=== PATIENT | male | born 1955 | race Caucasian/White ===

== ENCOUNTER 2017-12-22 18:06 | Inpatient (IN) | payer BC, MEDICARE ==
[~2017-12-22] VITALS: Ht 185.4 cm; Wt 145.2 kg
[~2017-12-22 18:06] MED LIST: AMLO10TA2 PO; ATEN-60 PO; CLIN150C PO; CLIN1CAP4 PO; LORA1TAB12 PO; PANT40TA2 PO; TRAM-297 PO
[2017-12-22] MEDS: KETOROLAC TROMETH 30 MG/ML 1ML VIAL IV ONE ×2 (19:10→19:32)
[2017-12-22 19:36] LABS: Basophils # (auto) 0.1 uL; Basophils % (auto) 0.5 % (0.0-2.0); Eosinophils # (auto) 0.3 uL; Eosinophils % (auto) 2.5 % (0.0-7.0); Hematocrit 42.5 % (41.0-53.0); Hemoglobin 14.6 g/dL (13.5-17.5); Lymphocytes # (auto) 1.3 uL; Lymphocytes % (auto) 12.5 % (10.0-50.0); Mean Corpuscular Hemoglobin 32.5 pg (28.0-32.0); Mean Corpuscular Hgb Conc. 34.4 g/dL (32.0-36.0); Mean Corpuscular Volume 94.4 fL (80.0-100.0); Monocytes # (auto) 1.3 uL; Neutrophils # (auto) 7.8 uL; Neutrophils % (auto) 72.5 % (37.0-80.0); Platelet Count (auto) 297 10^3/uL (140-450); Red Cell Distribution Width 13.4 % (11.8-14.3); White Blood Cell 10.7 10^3/uL (4.4-10.8)
[2017-12-22 19:42] LABS: Albumin 2.7 g/dL (3.4-5.0); BUN/Creatinine Ratio 18.4; Calcium 9.1 mg/dL (8.5-10.1); Magnesium 2.8 mg/dL (1.6-2.6); Potassium 3.6 mmol/L (3.5-5.1); Uric Acid 8.2 mg/dL (3.5-7.2)
[2017-12-22] MEDS ORDERED: ONDANSETRON HCL 4 MG/2 ML VIAL IV PRN (23:30)
[2017-12-23] MEDS ORDERED: COLCHICINE 0.6 MG TAB PO ONE
[2017-12-23] MEDS ORDERED: predniSONE 20 MG TAB PO ONE
[2017-12-23 02:55] LABS: Urine Bacteria NONE SEEN /hpf (None Seen); Urine Blood Negative /uL (Negative); Urine Hyaline Cast FEW /lpf (0 - 2); Urine Mucus FEW (None Seen); Urine Specific Gravity 1.019 (1.001-1.035); Urine WBC 1 /hpf (0 - 3)
[2017-12-23 05:00] VITALS: BP 145/78
[2017-12-23 06:08] LABS: Basophils # (auto) 0 uL; Basophils % (auto) 0.3 % (0.0-2.0); Eosinophils # (auto) 0 uL; Eosinophils % (auto) 0.4 % (0.0-7.0); Hematocrit 42.8 % (41.0-53.0); Lymphocytes # (auto) 0.8 uL; Lymphocytes % (auto) 7.6 % (10.0-50.0); Mean Corpuscular Hemoglobin 32.9 pg (28.0-32.0); Mean Corpuscular Volume 94.1 fL (80.0-100.0); Monocytes # (auto) 0.5 uL; Monocytes % (auto) 5.1 % (0.0-12.0); Neutrophils # (auto) 8.9 uL; Neutrophils % (auto) 86.6 % (37.0-80.0); Nucleated Red Blood Cells % 0.1 %; Platelet Count (auto) 282 10^3/uL (140-450); Red Blood Cells 4.55 10^6/uL (4.5-5.90); Red Cell Distribution Width 13.2 % (11.8-14.3); White Blood Cell 10.3 10^3/uL (4.4-10.8)
[2017-12-23 06:18] LABS: Albumin 2.8 g/dL (3.4-5.0); BUN/Creatinine Ratio 21.2; Calcium 9.2 mg/dL (8.5-10.1); Potassium 3.9 mmol/L (3.5-5.1); Total Protein 8.2 g/dL (6.4-8.2)
[2017-12-23 09:00] VITALS: BP 140/77
[2017-12-23] MEDS ORDERED: ATENOLOL 50 MG TAB PO SCH (10:00)
[2017-12-23] MEDS: predniSONE 20 MG TAB PO SCH (10:28)
[2017-12-23] MEDS: PANTOPRAZOLE 40 MG TAB PO SCH (10:28)
[2017-12-23] MEDS: amLODIPine BESYLATE 5 MG TAB PO SCH (10:30)
[2017-12-23] MEDS: ENOXAPARIN SOD 40 MG/0.4 ML SYRINGE SC SCH (10:30)
[2017-12-23] MEDS ORDERED: METOPROLOL TARTRATE 1MG/1ML-5ML VIAL IV ONE (12:45)
[2017-12-23 13:00] VITALS: BP 109/75
[2017-12-23] MEDS ORDERED: SODIUM CHLORIDE 0.9% 1,000 ML IV ONE (13:45)
[2017-12-23] MEDS ORDERED: SODIUM CHLORIDE 0.9% 1,000 ML IV SCH (14:15)
[2017-12-23] MEDS ORDERED: DILTIAZEM HCL 25 MG/5 ML VIAL IV ONE (14:15)
[2017-12-23] MEDS ORDERED: ADENOSINE 6 MG/2 ML INJ IV ONE (14:30)
[2017-12-23] MEDS ORDERED: CLINDAMYCIN HCL 150 MG CAP PO SCH (14:59)
[2017-12-23 19:45] VITALS: BP 107/62
[2017-12-23] MEDS: METOPROLOL TARTRATE 25 MG TAB PO SCH (22:00)
[2017-12-23] MEDS: TEMAZEPAM 15 MG CAP PO PRN (22:29)
[2017-12-24] VITALS (7 sets, daily range): BP systolic 112–141; BP diastolic 63–79
[2017-12-24] MEDS: METOPROLOL TARTRATE 25 MG TAB PO SCH ×2 (09:11→21:57)
[2017-12-24] MEDS: amLODIPine BESYLATE 5 MG TAB PO SCH (09:12)
[2017-12-24] MEDS: ENOXAPARIN SOD 40 MG/0.4 ML SYRINGE SC SCH (09:25)
[2017-12-24] MEDS: predniSONE 20 MG TAB PO SCH (09:25)
[2017-12-24] MEDS: PANTOPRAZOLE 40 MG TAB PO SCH (09:25)
[2017-12-24 09:45] LABS: Basophils # (auto) 0.1 uL; Basophils % (auto) 0.6 % (0.0-2.0); Eosinophils # (auto) 0.1 uL; Eosinophils % (auto) 0.7 % (0.0-7.0); Hematocrit 42.5 % (41.0-53.0); Hemoglobin 14.2 g/dL (13.5-17.5); Lymphocytes # (auto) 1.8 uL; Lymphocytes % (auto) 15.1 % (10.0-50.0); Mean Corpuscular Hemoglobin 31.4 pg (28.0-32.0); Mean Corpuscular Hgb Conc. 33.4 g/dL (32.0-36.0); Monocytes % (auto) 8.4 % (0.0-12.0); Neutrophils # (auto) 9.1 uL; Neutrophils % (auto) 75.2 % (37.0-80.0); Platelet Count (auto) 344 10^3/uL (140-450); Red Blood Cells 4.53 10^6/uL (4.5-5.90); Red Cell Distribution Width 12.8 % (11.8-14.3); White Blood Cell 12.1 10^3/uL (4.4-10.8)
[2017-12-24 10:08] LABS: Potassium 3.8 mmol/L (3.5-5.1)
[2017-12-24] MEDS: CYCLOSPORINE EACHEYE SCH ×3 (14:04→22:24)
[2017-12-24] MEDS ORDERED: CYCLOSPORINE EACHEYE SCH (22:00)
[2017-12-24] MEDS: TEMAZEPAM 15 MG CAP PO PRN (22:24)
[2017-12-25 04:59] VITALS: BP 127/71
[2017-12-25 06:14] LABS: Basophils # (auto) 0 uL; Basophils % (auto) 0.4 % (0.0-2.0); Eosinophils # (auto) 0.1 uL; Eosinophils % (auto) 0.7 % (0.0-7.0); Hemoglobin 13.7 g/dL (13.5-17.5); Lymphocytes # (auto) 1.7 uL; Lymphocytes % (auto) 15.6 % (10.0-50.0); Mean Corpuscular Hemoglobin 31.9 pg (28.0-32.0); Mean Corpuscular Hgb Conc. 34.2 g/dL (32.0-36.0); Mean Corpuscular Volume 93.2 fL (80.0-100.0); Monocytes # (auto) 1.1 uL; Monocytes % (auto) 9.8 % (0.0-12.0); Neutrophils # (auto) 8.1 uL; Neutrophils % (auto) 73.5 % (37.0-80.0); Nucleated Red Blood Cells % 0.1 %; Platelet Count (auto) 294 10^3/uL (140-450); Red Blood Cells 4.29 10^6/uL (4.5-5.90); Red Cell Distribution Width 13.1 % (11.8-14.3)
[2017-12-25 06:31] LABS: Calcium 8.8 mg/dL (8.5-10.1); Potassium 3.8 mmol/L (3.5-5.1)
[2017-12-25 07:51] VITALS: BP 142/93
[2017-12-25] MEDS: predniSONE 20 MG TAB PO SCH (09:38)
[2017-12-25] MEDS: PANTOPRAZOLE 40 MG TAB PO SCH (09:38)
[2017-12-25] MEDS: METOPROLOL TARTRATE 25 MG TAB PO SCH ×2 (09:39→22:40)
[2017-12-25] MEDS: ENOXAPARIN SOD 40 MG/0.4 ML SYRINGE SC SCH (09:39)
[2017-12-25] MEDS: amLODIPine BESYLATE 5 MG TAB PO SCH (09:39)
[2017-12-25 12:37] VITALS: BP 143/63
[2017-12-25 17:27] VITALS: BP 150/86
[2017-12-25 20:00] VITALS: BP 130/77
[2017-12-25 21:30] VITALS: BP 130/77
[2017-12-25] MEDS: CYCLOSPORINE EACHEYE SCH (22:40)
[2017-12-25] MEDS: TEMAZEPAM 15 MG CAP PO PRN (22:41)
[2017-12-26 05:00] VITALS: BP 133/73
[2017-12-26 06:22] LABS: Hematocrit 42.4 % (41.0-53.0); Hemoglobin 14.4 g/dL (13.5-17.5); Mean Corpuscular Volume 94.2 fL (80.0-100.0); Platelet Count (auto) 295 10^3/uL (140-450); Red Blood Cells 4.51 10^6/uL (4.5-5.90); White Blood Cell 11.6 10^3/uL (4.4-10.8)
[2017-12-26 06:35] LABS: Band Neutrophils % (manual) 0; Basophils % (manual) 0 (0.0-2.0); Blast Cells 0; Eosinophils % (manual) 0 (0-7); Myelocytes % 0; Promyelocytes % 0; Reactive Lymphocytes 0
[2017-12-26] MEDS: PANTOPRAZOLE 40 MG TAB PO SCH (06:40)
[2017-12-26 06:45] LABS: Calcium 8.8 mg/dL (8.5-10.1); Potassium 3.7 mmol/L (3.5-5.1)
[2017-12-26 07:01] LABS: Lymphocytes % (manual) 21 (10.0-50.0); Metamyelocytes % 1; Monocytes % (manual) 6 (0-12)
[2017-12-26 08:09] VITALS: BP 154/74
[2017-12-26] MEDS: CYCLOSPORINE EACHEYE SCH ×2 (09:55→22:19)
[2017-12-26] MEDS: amLODIPine BESYLATE 5 MG TAB PO SCH (09:56)
[2017-12-26] MEDS: METOPROLOL TARTRATE 25 MG TAB PO SCH ×2 (09:56→22:20)
[2017-12-26] MEDS: ENOXAPARIN SOD 40 MG/0.4 ML SYRINGE SC SCH (10:00)
[2017-12-26 10:10] LABS: INR 1.09 (0.9-1.15); Prothrombin Time 11.6 sec (9.27-12.13)
[2017-12-26] MEDS: COLCHICINE 0.6 MG TAB PO SCH ×2 (10:45→22:19)
[2017-12-26 12:41] VITALS: BP 147/64
[2017-12-26 16:46] VITALS: BP 130/66
[2017-12-26] MEDS: DOXYCYCLINE 100MG/250ML 250 ML IV SCH (18:26)
[2017-12-26] MEDS: SODIUM CHLORIDE 0.9% 1,000 ML IV SCH (18:27)
[2017-12-26 19:00] LABS: Basophils # (auto) 0.1 uL; Basophils % (auto) 0.5 % (0.0-2.0); Eosinophils # (auto) 0.2 uL; Eosinophils % (auto) 1.7 % (0.0-7.0); Hematocrit 43.3 % (41.0-53.0); Hemoglobin 14.6 g/dL (13.5-17.5); Lymphocytes # (auto) 2.9 uL; Lymphocytes % (auto) 23.5 % (10.0-50.0); Mean Corpuscular Hemoglobin 31.9 pg (28.0-32.0); Mean Corpuscular Hgb Conc. 33.6 g/dL (32.0-36.0); Mean Corpuscular Volume 94.9 fL (80.0-100.0); Monocytes # (auto) 1.3 uL; Monocytes % (auto) 11.1 % (0.0-12.0); Neutrophils # (auto) 7.7 uL; Neutrophils % (auto) 63.2 % (37.0-80.0); Nucleated Red Blood Cells % 0.1 %; Platelet Count (auto) 308 10^3/uL (140-450); Red Blood Cells 4.56 10^6/uL (4.5-5.90); Red Cell Distribution Width 13.3 % (11.8-14.3); White Blood Cell 12.1 10^3/uL (4.4-10.8)
[2017-12-26 19:18] LABS: BUN/Creatinine Ratio 26.1; Calcium 8.9 mg/dL (8.5-10.1); Potassium 3.9 mmol/L (3.5-5.1)
[2017-12-26 21:55] VITALS: BP 108/57
[2017-12-26] MEDS: TEMAZEPAM 15 MG CAP PO PRN (23:29)
[2017-12-27 05:14] VITALS: BP 121/67
[2017-12-27 06:10] LABS: Hematocrit 40.8 % (41.0-53.0); Hemoglobin 14.1 g/dL (13.5-17.5); Mean Corpuscular Hemoglobin 32.5 pg (28.0-32.0); Mean Corpuscular Hgb Conc. 34.7 g/dL (32.0-36.0); Mean Corpuscular Volume 93.8 fL (80.0-100.0); Platelet Count (auto) 253 10^3/uL (140-450); Red Blood Cells 4.35 10^6/uL (4.5-5.90); Red Cell Distribution Width 13.1 % (11.8-14.3); White Blood Cell 10.9 10^3/uL (4.4-10.8)
[2017-12-27] MEDS: DOXYCYCLINE 100MG/250ML 250 ML IV SCH (06:23)
[2017-12-27] MEDS: PANTOPRAZOLE 40 MG TAB PO SCH (06:23)
[2017-12-27 06:29] LABS: Band Neutrophils % (manual) 0; Basophils % (manual) 0 (0.0-2.0); Blast Cells 0; Myelocytes % 0; Promyelocytes % 0; Reactive Lymphocytes 0
[2017-12-27 06:38] LABS: BUN/Creatinine Ratio 27.5; Calcium 8.7 mg/dL (8.5-10.1); Potassium 3.6 mmol/L (3.5-5.1)
[2017-12-27 06:46] LABS: Eosinophils % (manual) 2 (0-7); Lymphocytes % (manual) 22 (10.0-50.0); Metamyelocytes % 2; Monocytes % (manual) 5 (0-12)
[2017-12-27] MEDS: SODIUM CHLORIDE 0.9% 1,000 ML IV SCH ×2 (07:50→22:05)
[2017-12-27 09:00] VITALS: BP 119/72
[2017-12-27] MEDS: amLODIPine BESYLATE 5 MG TAB PO SCH (09:45)
[2017-12-27] MEDS: COLCHICINE 0.6 MG TAB PO SCH ×2 (09:45→22:04)
[2017-12-27] MEDS: METOPROLOL TARTRATE 25 MG TAB PO SCH ×2 (09:46→22:04)
[2017-12-27] MEDS: ENOXAPARIN SOD 40 MG/0.4 ML SYRINGE SC SCH (09:47)
[2017-12-27] MEDS: CYCLOSPORINE EACHEYE SCH ×2 (10:00→22:04)
[2017-12-27 13:00] VITALS: BP 116/64
[2017-12-27] MEDS ORDERED: LIDOCAINE 2% (LOCAL ANESTH.) PF 5ml SDV ONE (14:53)
[2017-12-27] MEDS ORDERED: MIDAZOLAM HCL 1MG/1ML-2 ML VIAL ONE (15:04)
[2017-12-27] MEDS ORDERED: fentaNYL CITRATE 100 MCG/2 ML VL ONE (15:04)
[2017-12-27] MEDS ORDERED: ceFAZolin 1GM/50ML 100 ML IV ONE (15:22)
[2017-12-27] MEDS ORDERED: DOXYCYCLINE 100 MG TAB/CAP PO ONE (16:00)
[2017-12-27] MEDS ORDERED: ASPirin 81 mg TAB ONE (17:26)
[2017-12-27 22:01] VITALS: BP 114/59
[2017-12-28] MEDS: traMADol HCL 50 MG TAB PO PRN ×3 (01:17→21:55)
[2017-12-28 05:21] VITALS: BP 138/79
[2017-12-28] MEDS: ACETAMINOPHEN 325 MG TAB PO PRN (06:15)
[2017-12-28] MEDS: PANTOPRAZOLE 40 MG TAB PO SCH (06:46)
[2017-12-28 07:03] LABS: Hematocrit 42.5 % (41.0-53.0); Hemoglobin 14.4 g/dL (13.5-17.5); Mean Corpuscular Hemoglobin 31.5 pg (28.0-32.0); Mean Corpuscular Hgb Conc. 33.8 g/dL (32.0-36.0); Mean Corpuscular Volume 93.3 fL (80.0-100.0); Platelet Count (auto) 236 10^3/uL (140-450); Red Blood Cells 4.56 10^6/uL (4.5-5.90); Red Cell Distribution Width 13.1 % (11.8-14.3); White Blood Cell 13.1 10^3/uL (4.4-10.8)
[2017-12-28 07:08] LABS: Band Neutrophils % (manual) 0; Basophils % (manual) 0 (0.0-2.0); Blast Cells 0; Metamyelocytes % 0; Promyelocytes % 0; Reactive Lymphocytes 0
[2017-12-28 07:21] LABS: BUN/Creatinine Ratio 22.5; Calcium 8.5 mg/dL (8.5-10.1)
[2017-12-28 09:00] VITALS: BP 127/73
[2017-12-28] MEDS: METOPROLOL TARTRATE 25 MG TAB PO SCH ×2 (10:00→21:56)
[2017-12-28] MEDS: COLCHICINE 0.6 MG TAB PO SCH ×2 (10:18→21:55)
[2017-12-28] MEDS: ENOXAPARIN SOD 40 MG/0.4 ML SYRINGE SC SCH (10:18)
[2017-12-28] MEDS: ASPirin 81 mg TAB PO SCH (10:18)
[2017-12-28] MEDS: amLODIPine BESYLATE 5 MG TAB PO SCH (10:18)
[2017-12-28] MEDS: SODIUM CHLORIDE 0.9% 1,000 ML IV SCH ×2 (10:19→23:50)
[2017-12-28] MEDS: CYCLOSPORINE EACHEYE SCH ×2 (10:19→21:57)
[2017-12-28 11:26] LABS: Eosinophils % (manual) 3 (0-7); Lymphocytes % (manual) 19 (10.0-50.0); Monocytes % (manual) 4 (0-12); Myelocytes % 1
[2017-12-28 13:00] VITALS: BP 123/59
[2017-12-28 17:00] VITALS: BP 120/72
[2017-12-28 20:00] VITALS: BP 128/66
[2017-12-28] MEDS: TEMAZEPAM 15 MG CAP PO PRN (21:56)
[2017-12-28 22:00] VITALS: BP 128/66
[2017-12-29] MEDS: MORPHINE SULFATE 4 MG/ML SYR/VIAL IV PRN (03:01)
[2017-12-29] MEDS ORDERED: ASPI325T4 PO (04:07)
[2017-12-29 05:00] VITALS: BP 138/69
[2017-12-29] MEDS: PANTOPRAZOLE 40 MG TAB PO SCH (06:50)
[2017-12-29 09:00] VITALS: BP 107/68
[2017-12-29] MEDS: METOPROLOL TARTRATE 25 MG TAB PO SCH ×2 (10:00→22:11)
[2017-12-29] MEDS: amLODIPine BESYLATE 5 MG TAB PO SCH (10:00)
[2017-12-29] MEDS: COLCHICINE 0.6 MG TAB PO SCH ×2 (10:16→22:11)
[2017-12-29] MEDS: ENOXAPARIN SOD 40 MG/0.4 ML SYRINGE SC SCH (10:16)
[2017-12-29] MEDS: CYCLOSPORINE EACHEYE SCH ×2 (10:16→22:13)
[2017-12-29] MEDS: ASPirin 81 mg TAB PO SCH (10:16)
[2017-12-29] MEDS: SODIUM CHLORIDE 0.9% 1,000 ML IV SCH (11:30)
[2017-12-29 13:00] VITALS: BP 124/78
[2017-12-29 17:00] VITALS: BP 141/69
[2017-12-29 22:00] VITALS: BP 121/74
[2017-12-29] MEDS: TEMAZEPAM 15 MG CAP PO PRN (22:12)
[2017-12-29] MEDS: traMADol HCL 50 MG TAB PO PRN (22:12)
[2017-12-29] MEDS: ACETAMINOPHEN 325 MG TAB PO PRN (22:12)
[2017-12-30] MEDS: MORPHINE SULFATE 4 MG/ML SYR/VIAL IV PRN (00:45)
[2017-12-30] MEDS: SODIUM CHLORIDE 0.9% 1,000 ML IV SCH (02:30)
[2017-12-30 05:37] VITALS: BP 124/76
[2017-12-30] MEDS: PANTOPRAZOLE 40 MG TAB PO SCH (07:11)
[2017-12-30 08:02] LABS: Hematocrit 40.1 % (41.0-53.0); Hemoglobin 13.5 g/dL (13.5-17.5); Mean Corpuscular Hemoglobin 31.5 pg (28.0-32.0); Mean Corpuscular Hgb Conc. 33.8 g/dL (32.0-36.0); Mean Corpuscular Volume 93.1 fL (80.0-100.0); Platelet Count (auto) 204 10^3/uL (140-450); Red Cell Distribution Width 13.6 % (11.8-14.3); White Blood Cell 13.1 10^3/uL (4.4-10.8)
[2017-12-30 08:14] LABS: Basophils % (manual) 0 (0.0-2.0); Blast Cells 0; Metamyelocytes % 0; Myelocytes % 0; Promyelocytes % 0; Reactive Lymphocytes 0
[2017-12-30 08:16] VITALS: BP 137/76
[2017-12-30] MEDS: METOPROLOL TARTRATE 25 MG TAB PO SCH (10:00)
[2017-12-30 10:19] LABS: Band Neutrophils % (manual) 1; Eosinophils % (manual) 1 (0-7); Lymphocytes % (manual) 15 (10.0-50.0); Monocytes % (manual) 9 (0-12)
[2017-12-30] MEDS: COLCHICINE 0.6 MG TAB PO SCH (10:35)
[2017-12-30] MEDS: ASPirin 81 mg TAB PO SCH (10:36)
[2017-12-30] MEDS: amLODIPine BESYLATE 5 MG TAB PO SCH (10:36)
[2017-12-30] MEDS: CYCLOSPORINE EACHEYE SCH (10:36)
[2017-12-30] MEDS: ENOXAPARIN SOD 40 MG/0.4 ML SYRINGE SC SCH (10:36)
[2017-12-30 13:00] VITALS: BP 130/76
[2017-12-30 13:21] VITALS: BP 137/76
== END 2017-12-30 15:00 | DRG 273 ==
LOC: ER 18:06 → EDUNIT# 18:06 → WEST WING 18:07 → DOU IN ICU 12-23 16:55 → TELE-CENTR 12-24 14:14
PROVIDERS: ADMIT Nurse Practitioner; ATTEND Internal Medicine
PROC: 4A0234Z Measurement of Cardiac Electrical Activity, Percutaneous Approach (ICD-10-PCS; principal; 2017-12-27)
PROC: 02583ZZ Destruction of Conduction Mechanism, Percutaneous Approach (ICD-10-PCS; 2017-12-27)
PROC: 02K83ZZ Map Conduction Mechanism, Percutaneous Approach (ICD-10-PCS; 2017-12-27)
PROC: 4A023FZ Measurement of Cardiac Rhythm, Percutaneous Approach (ICD-10-PCS; 2017-12-27)
DX: I47.1 Supraventricular tachycardia (principal); N17.0 Acute kidney failure with tubular necrosis; E44.0 Moderate protein-calorie malnutrition; Z68.41 Body mass index [BMI] 40.0-44.9, adult; M10.9 Gout, unspecified; M17.0 Bilateral primary osteoarthritis of knee; I44.0 Atrioventricular block, first degree; N18.3 Chronic kidney disease, stage 3 (moderate); I12.9 Hypertensive chronic kidney disease with stage 1 through stage 4 chronic kidney disease, or unspecified chronic kidney disease; E66.01 Morbid (severe) obesity due to excess calories; Z98.890 Other specified postprocedural states
CPT/HCPCS: 36415; 71045; 73562; 80048; 80053; 81001; 83735; 83880; 84484; 84550; 85007; 85025; 85027; 85610; 93005; 93306; 93613; 93621; 93653; 94761; 96374; 97110; 97116; 97530; 99152; A6257; J0153; J0690; J1885; J2001; J2250; J3490